=== PATIENT | female | born 1950 | race Caucasian/White ===

== ENCOUNTER → 2017-03-23 | Outpatient (CLI) | payer OTHER ==
[~2017-03-23] MED LIST: ALLO100T PO; FLVHFA110 INH; GUAISYP4 PO; LACTCHW3 PO; LSX/40 PO; METR500T PO; ONDA8TAB9 SL; OXYC-57 PO; POTA-335 PO; WARF5TAB90 PO
--- NOTE | 2017-03-24 14:30 | MAMMOGRAPHY REPORT ---
BILATERAL DIGITAL SCREENING MAMMOGRAM WITH CAD: 03/23/2017 CLINICAL HISTORY: Routine screening. TECHNIQUE: Current study was also evaluated with a Computer Aided Detection (CAD) system. Bilateral CC and MLO views were obtained. COMPARISON: Comparison is made to exams dated: 12/30/2015 mammogram, 06/13/2014 mammogram, 06/12/2013 m ammogram, 08/04/2010 mammogram, 08/03/2009 mammogram - [facility], and 08/01/2008. BREAST COMPOSITION: The tissue of both breasts is almost entirely fatty. FINDINGS: There are grouped calcifications in the right subareolar breast, for which spot magnificati on views are recommended for further evaluation. The remainder of both breasts are stable compared to prior exams, without suspicious masses, calcific ations, or areas of architectural distortion noted. Other scattered bilateral benign-appearing calci fications are stable. IMPRESSION: ACR BI-RADS CATEGORY 0: INCOMPLETE EVALUATION: NEED ADDITIONAL IMAGING EVALUATION Right breast calcifications, for which additional imaging evaluation is recommended. The patient viktor l be called to schedule an appointment. Approximately 10% of breast cancers are not detected with mammography. A negative mammographic report should not delay biopsy if a clinically suggestive mass is present. Carolyn Bonilla M.D. ah/:03/23/2017 16:47:52 Coating Engineer: Xiang YBARRA(Ollie)(M), [facility] letter sent: Addl Imaging 0 BI-RADS Code: ACR BI-RADS Category 0: Incomplete Evaluation: Need Additional Imaging Evaluation
== END | disposition home or self-care (01) ==
LOC: C.MAMM 14:19
PROVIDERS: ATTEND Family Medicine
DX: Z12.31 Encounter for screening mammogram for malignant neoplasm of breast (principal); R92.1 Mammographic calcification found on diagnostic imaging of breast

== ENCOUNTER → 2017-03-31 | Outpatient (CLI) | payer OTHER ==
--- NOTE | 2017-03-31 13:34 | MAMMOGRAPHY REPORT ---
UNILATERAL RIGHT DIGITAL DIAGNOSTIC MAMMOGRAM: 03/31/2017 CLINICAL HISTORY: Callback from screening mammogram for right breast calcifications. TECHNIQUE: Spot magnification right CC and ML views were obtained. COMPARISON: Comparison is made to exams dated: 03/23/2017 mammogram, 12/30/2015 mammogram, 06/13/2014 m ammogram, 06/12/2013 mammogram, 08/04/2010 mammogram, and 08/03/2009 mammogram - [facility]. BREAST COMPOSITION: The tissue of the right breast is almost entirely fatty. FINDINGS: Spot magnification views of the right breast demonstrate grouped coarse heterogeneous calci fications in the right subareolar breast, which are somewhat linear in distribution on the cc view. The total extent of the group measures 13 mm. Given the coarse heterogeneous morphology and given th e linear distribution, the calcifications are indeterminate and stereotactic biopsy is recommended fo r further evaluation. IMPRESSION: ACR BI-RADS CATEGORY 4: SUSPICIOUS Grouped coarse heterogeneous calcifications in the right subareolar breast are indeterminant and ster eotactic biopsy is recommended for further evaluation. A phone call was made to the physician's office to confirm faxed results were received. The patient has been verbally notified of the results. She tentatively scheduled the biopsy before leaving the d epartment. I will leave it up to the patient's prescribing physician if she can safely discontinue C oumadin prior to the procedure. Approximately 10% of breast cancers are not detected with mammography. A negative mammographic report should not delay biopsy if a clinically suggestive mass is present. Carolyn Bonilla M.D. ah/:03/31/2017 10:08:38 System Specialist: Kylah YBARRA(R)(M), [facility] letter sent: Abnormal 4/5 BI-RADS Code: ACR BI-RADS Category 4: Suspicious
== END | disposition home or self-care (01) ==
LOC: C.MAMM 09:33
PROVIDERS: ATTEND Family Medicine
DX: R92.0 Mammographic microcalcification found on diagnostic imaging of breast (principal)